=== PATIENT | male | born 1950 | race Caucasian/White ===

== ENCOUNTER 2018-08-20 10:42 | Inpatient (IN) ==
--- NOTE | 2018-08-20 09:38 | Discharge Summary ---
<Michael Burleson - Last Filed: 08/21/18 06:31> Orders not resulted at time of discharge: Pending orders 08/20/18 11:43 US anesthesia pain block [US] Routine Date of Encounter: 08/21/18 Time of Encounter: 06:31 - Hospital Course Hospital course: Mr. Gillis is a 68 year old male Patient discharged home same day following total shoulder replacement. - Time Spent with Patient Total time spent providing and/or coordinating discharge services: - Discharge Medications Home Medications: Atorvastatin [Lipitor] 10 mg PO HS 08/20/18 [History] Dm Hb/PE/Acetaminophen/Chlorph [Janelle-Perrin Plus Cld-Cough Cp] 2 cap PO BID PRN 08/20/18 [History] Metoprolol Succinate [Toprol Xl] 50 mg PO DAILY 08/20/18 [History] RX: Docusate Sodium [Colace] 100 mg PO BID 5 Days #10 capsule 08/20/18 [Rx] RX: OxyCODONE Immed Rel [Roxicodone 5 MG] 5 mg PO Q6HR PRN 7 Days #28 tablet 08/20/18 [Rx] RX: hydroCHLOROthiazide [Hydrochlorothiazide] 25 mg PO DAILY 08/20/18 [History] Allergies/Adverse Reactions: Allergy/AdvReac Type Severity Reaction Status Date / Time No Known Allergies Allergy Verified 08/20/18 11:27 Date of admission: 08/20/18 14:37 Primary care physician: Pavan Ramirez Consults: 08/20/18 15:26 Consult to Occupational Therapy [CONS] Routine Comment: post shoulder surgery Reason for Consult: post shoulder surgery Does patient have active BEDREST order?: No Is patient medically & hemodynamically stable?: Yes Consult to Physical Therapy [CONS] Routine Comment: post shoulder surgery Reason for Consult: post shoulder surgery Does patient have active BEDREST order?: No Is patient medically & hemodynamically stable?: Yes RT Post Op Consult [CONS] Routine Labs on day of discharge: Labs from last 24 hours 08/20/18 14:22 Hgb 13.9 D Hct 41.5 - Impressions ITS Impressions Shoulder X-Ray 08/20/18 01:00 IMPRESSION: Postsurgical changes of right shoulder arthroplasty. No acute process. D/ / Elizabeth Kennedy MD / Elizabeth Kennedy MD Interpreting Provider: Elizabeth Kennedy MD - Patient Status Disposition: Home Health Service Condition: Good Functional capacity at discharge: independent ambulation Overall status at discharge: patient is progressing back to baseline - Discharge Instructions Instructions: Joint Replacement Surgery (DC) Follow Up With: Pavan Ramirez DO [Primary Care Provider] - Additional Instructions: Discharge Instructions: Total Shoulder Please call [facility] ([phone]), your Primary Care Physician, or report to the Emergency Room if you have any of the following symptoms: Nausea, vomiting, fever greater that 101.5, swelling, chest pain, shortness of breath, increased pain/redness/drainage/odor for your incision site, numbness/tingling, or any other concerning symptoms. ACTIVITY: Always keep your arm in the sling. Do not raise your arm away from your body. Do not use your arm to help with getting in or out of bed. No weight bearing permitted. Only perform those exercises given to you by your therapist. Incentive Spirometer 10 times an hour. MEDICATIONS: Upon discharge resume your home medications. Take all the medications as prescribed. Take a stool softener if taking narcotic pain medications. Stool softeners are only effective if you drink enough fluids. Drink 6-8 glass of water or fluids a day, unless this is not allowed for another health problem. Despite using stool softeners, if you haven't had a bowel movement in 3 days, please switch to a gentle laxative. Gentle laxatives are sold over the counter. You should have a bowel movement within 24 hours, if not call the office. You will be discharged from the hospital with a prescription for pain medication. You are encouraged to decrease the use of narcotic pain medication as tolerated. Should you require a refill, please call the office. [facility] prescribes narcotic pain medication for only 4-6 weeks after surgery. If you require pain medication beyond this time period, you may be referred to your Primary Care Physician or to the Pain Clinic for further evaluation. Plan ahead for refills on pain medication as many narcotics either need to be picked up at the office or mailed. It is best to call 48-72 hours in advance of needing a prescription refill so you don't run out of medication. To help control the post-operative pain, you may take NSAIDs (Aleve,Advil, Motrin, Ibuprofen, Naprosyn) or Tylenol as prescribed on the bottle in addition to the pain medication. WOUND CARE: Leave the dressing on for 7-10 days. You may change the dressing if it becomes saturated greater than 50%. Do not get the dressing wet at anytime. Wash your hands with antibacterial soap, rinse and dry prior to any wound care. If you have uma the visiting nurse or rehab facility can remove the stapes 10-14 days after surgery and place steri-strips across the wound. Leave the steri-strips in place until they fall off on their own. You may let water from the shower run on top of the steri-strips. If you do not have a visiting nurse or rehab facility, you will need to return to the office at 10-14 days for the uma to be removed. If you have itching or redness around the dressing call the office. FOLLOW-UP: Please follow up with your surgeon in the orthopedic clinic, as beckie benito <Mirna Gregorio - Last Filed: 08/21/18 17:09> Orders not resulted at time of discharge: Pending orders 08/20/18 01:00 XR shoulder complete RT [XR] Routine Hemoglobin and Hematocrit [HEME] Routine Date of Encounter: 08/21/18 - Discharge Diagnosis (1) Rotator cuff arthropathy Priority: Primary Status: Chronic Qualifiers: Laterality: right Qualified Code(s): M12.811 - Other specific arthropathies, not elsewhere classified, right shoulder (2) Status post total shoulder arthroplasty Priority: Primary Status: Acute Qualifiers: Laterality: right Qualified Code(s): Z96.611 - Presence of right artificial shoulder joint (3) HTN (hypertension) Priority: Secondary Status: Chronic Qualifiers: Hypertension type: unspecified Qualified Code(s): I10 - Essential (primary) hypertension (4) HLD (hyperlipidemia) Priority: Secondary Status: Chronic Qualifiers: Hyperlipidemia type: unspecified Qualified Code(s): E78.5 - Hyperlipidemia, unspecified (5) Obesity Priority: Secondary Status: Chronic Qualifiers: Obesity type: unspecified obesity type Obesity classification: adult class 2 (BMI 35 - 39.9) Serious obesity comorbidity presence: unspecified whether serious comorbidity present Body mass index: BMI 35.0-35.9 Qualified Code(s): E66.9 - Obesity, unspecified; Z68.35 - Body mass index (BMI) 35.0-35.9, adult - Hospital Course Hospital course: Mr. Gillis is a 68 year old male - Time Spent with Patient Total time spent providing and/or coordinating discharge services: Primary care physician: Pavan Ramirez
--- NOTE | 2018-08-20 10:55 | History & Physical Report ---
Date of Encounter: 08/20/18 Time of Encounter: 10:55 24 Hour HP Update - Instructions Instructions: If the History and Physical is less than 30 days old and was completed prior to A.M. admission and or procedure and has NOT been updated on calendar day of procedure please complete this update prior to performing procedure. - Update Patient reports changes in Medical Condition: No Changes in examination, assessment, or condition: No Changes in Medication: No Preop tests/diagnostics Reviewed: Yes Surgery Remains Indicated: Yes Consent for Planned Operative Procedure(s) Verified: Yes - Pre-Operative Checklist Preoperative Checklist Indicated: No Prophylactic Antibiotic Ordered: Yes Is VTE Prophylaxis Indicated?: Yes
[2018-08-20] MEDS ORDERED: CeFAZolin Syr 2,000MG/20 ML 2,000 MG/20 ML SYRINGE IVPB ONE (11:03)
[2018-08-20] MEDS ORDERED: Ringers Solution, Lactated 1,000 ML IVC SCH ×2 (11:15→15:26)
[2018-08-20] MEDS ORDERED: Famotidine 20 MG/2 ML VIAL IVP ONE (11:42)
[2018-08-20] MEDS ORDERED: Acetaminophen IV 1,000 MG/100 ML INFUS..BTL IVPB ONE (11:43)
--- NOTE | 2018-08-20 11:46 | Anesthesia Evaluation PreOp ---
Date of Encounter: 08/20/18 Time of Encounter: 11:45 - Past History Planned Operation: Rt Total Shoulder Replacement Cardiac History: HTN, Hyperlipidemia Pulmonary History: Denies Any Significant HX MONKEY KEEPER History: Denies Any Significant HX Other Medical History: Denies Any Significant HX Anesthesia History: No Prior Anesthetic Complications Alcohol Use: none Drug use: none Medications and Allergies Atorvastatin [Lipitor] 10 mg PO HS 08/20/18 [History] Dm Hb/PE/Acetaminophen/Chlorph [Janelle-Hemlock Plus Cld-Cough Cp] 2 cap PO BID PRN 08/20/18 [History] Docusate Sodium [Colace] 100 mg PO BID 5 Days #10 capsule 08/20/18 [Rx] Metoprolol Succinate [Toprol Xl] 50 mg PO DAILY 08/20/18 [History] OxyCODONE Immed Rel [Roxicodone 5 MG] 5 mg PO Q6HR PRN 7 Days #28 tablet 08/20/18 [Rx] hydroCHLOROthiazide [Hydrochlorothiazide] 25 mg PO DAILY 08/20/18 [History] Allergy/AdvReac Type Severity Reaction Status Date / Time No Known Allergies Allergy Verified 08/20/18 11:27 - Meds/Allergy Pre-op Review Medications Reviewed: Yes Allergies Reviewed: Yes Beta Blockers on Current Med List: Yes (Metoprolol today 0830) Anesthesia Results - Labs Laboratory Tests 08/16/18 08/16/18 13:15 13:15 Hgb 15.5 Hct 46.6 Plt Count 190 Sodium 138 Potassium 4.1 BUN 16 Creatinine 1.21 - Imaging EKG: report reviewed (SR) Anesthesia Exam O2 Sat Height 1.73 m Height 1.73 m Height 1.73 m Weight 104.78 kg Weight 104.78 kg Weight 104.78 kg O2 Sat by Pulse Oximetry 94 Vital Signs Temp Pulse Resp BP Pulse Ox 97.9 F 68 18 178/96 94 08/20/18 11:10 08/20/18 11:10 08/20/18 11:10 08/20/18 11:10 08/20/18 11:10 Height: 5'8 Weight: 231 lbs NPO (# of Hours): MN Pain Scale: 0 - HEENT Pupil (Motor): Pupils equal, EOMI Mallampati: III Oral Opening: Less than or equal to 3 - MONKEY KEEPER LOC: Oriented MONKEY KEEPER Motor: Normal RUE, Normal LUE, Normal RLE, Normal LLE, Normal Face MONKEY KEEPER Sensory: Normal: RUE, LUE, RLE, LLE, Face - Cardiac Rhythm: Regular Murmur: None JVD: No Carotid Bruit: No - Pulmonary Breath Sounds: bilateral Clear Respiratory Effort: Symmetrical Anesthesia Assess/Plan ASA Score: 2 Level of consciousness: Cooperative Anesthetic Plan: General, Regional Nerve Block Regional Nerve Block Plan: Supraclavicular Autologous Blood: No Monitoring Plan: Standard Monitors Recovery Plan: PACU (Discussed GA, RA, agrees to proceed)
[2018-08-20] MEDS ORDERED: *HR* FentaNYL (PF) 100 MCG/2 ML VIAL ONE ×2 (11:48→13:07)
[2018-08-20] MEDS ORDERED: *HR* Propofol 200 MG/20 ML VIAL IVP ONE (11:48)
[2018-08-20] MEDS ORDERED: *HR* Midazolam HCl 2 MG/2 ML VIAL ONE (11:48)
[2018-08-20] MEDS ORDERED: Celecoxib 100 MG CAPSULE PO ONE (11:49)
[2018-08-20] MEDS ORDERED: Lidocaine -MPF 2% 2 ML VIAL ONE (11:49)
[2018-08-20] MEDS ORDERED: Bupivacaine/Clonidine Syringe 1 EACH SYRINGE ONE (12:08)
[2018-08-20] MEDS ORDERED: ROPIVACAINE HCL/PF 0.5% 30 ML VIAL ONE (12:08)
[2018-08-20] MEDS ORDERED: Ethanol\\Acetic Acid\\Na Ace\\Ben 1,000 ML IRRIG.SOLN IR ONE (12:23)
--- NOTE | 2018-08-20 12:36 | Anesthesia Procedures ---
Date of Encounter: 08/20/18 Time of Encounter: 12:34 Procedures: Anesthesia - Nerve Block Procedure Date: 08/20/18 Time: 12:34 Allergies/Adv Reactions: nkda Pre-op Diagnosis: Right shoulder arthritis Surgical Procedure: Right total shoulder Checklist: Correct Patient Identifier, Correct procedure, History checked Correct side: Right Blood Thinner: No Monitor Applied: BP, Pulse Oximetry Supplemental Oxygen via Nasal Cannula (L/min): 2 Sedation: Versed (mg): 2 Sedation: Fentanyl (mcg): 100 Indication: Post Op Analgesia Pre-op Neuro Deficits: No Block Type: Supraclavicular, Other (ICB, SCB) Catheter placed: No Sterile Technique: Yes Ultrasound used: Yes Anatomy identified: Yes Visual spread of Local: Yes Neuro Stimulation: No Blood on Needle Aspiration: No Smooth Injection of Local: Yes Pain with Injection of Local: No Prep: Chlorhexadine Needle: 22 x 50 mm Stimuplex Local: 0.25% Bupivicaine w/Clonidine 20 mcg/cc (7ml for SCB and 10ml for ICB), Ropivacaine (30ml 0.5% for supraclavicular) Volume (cc): 47 Number of Attempts: 1 Complications: None/effective block Vitals: Vital Signs/O2 Sat, Most Current Temp Pulse Resp BP Pulse Ox 97.9 F 65 17 160/83 97 08/20/18 11:10 08/20/18 12:31 08/20/18 12:31 08/20/18 12:31 08/20/18 12:31
[2018-08-20] MEDS ORDERED: *HR* OxyCODONE Immed Rel 5 MG TABLET PO PRN ×2 (12:43→15:26)
[2018-08-20] MEDS ORDERED: *HR* Promethazine 25 MG/ML VIAL IVP PRN (12:43)
[2018-08-20] MEDS ORDERED: *HR* HYDROmorphone (PF) 1 MG/ML SYRINGE IVP PRN (12:43)
[2018-08-20] MEDS ORDERED: *HR* Labetalol 20 MG/4 ML SYRINGE IVP PRN (12:43)
[2018-08-20] MEDS ORDERED: EPHEDrine 50 MG/ML VIAL ONE (13:06)
[2018-08-20] MEDS ORDERED: Ondansetron 4 MG/2 ML VIAL ONE (13:26)
[2018-08-20] MEDS ORDERED: Dexamethasone 4 MG/ML VIAL ONE (13:26)
--- NOTE | 2018-08-20 13:47 | Orthopedic Operative Note ---
Date of procedure: 08/20/18 Pre-op diagnosis: Right shoulder cuff tear arthropathy Post-op diagnosis: same Procedure: Procedure: Total Shoulder Replacment Reverse, right Estimated blood loss: 50 cc Hardware: Metal and polyethylene replacement: Arthrex 28, +4 , 35 mm screw glenoid baseplate, 4 locking 5.5 screw, 42+4 glenosphere, 15 apex humeral stem, poly insert 3 Exam Under anesthesia: Procedural Notes: Operative procedure: The patient was brought to the operating room and placed on the operating room table. After general anesthesia was administered the operative shoulder was examined. Findings were noted. The patient was placed in the modified beachchair position. All pressure points were padded appropriately. And the head was stabilized in the neutral position. The operative extremity was prepped and draped in the sterile surgical fashion. The patient received IV antibiotics prior to skin incision. A standard deltopectoral approach was made to the operative shoulder. Incision was made to the skin and subcutaneous tissue,hemo stasis was obtained with Bovie cautery. Using careful blunt dissection the cephalic vein was identified and mobilized medially. The deltopectoral interval was developed and the clavipectoral fascia was incised. The subscap was released off the lesser tuberosity and tagged with #2 FiberWire suture. The humerus was dislocated patient noted to have irreparable tear supraspinatus tendon, and the humeral cut was made along the anatomic neck. Anterior and posterior Bankart retractors were placed to expose the glenoid. The glenoid guide was seated and the centering hole was made. It was reamed with the appropriate reamer. The 28mm +4, 35 mm screw, baseplate was seated and secured with 4 locking 5.5 screw. The baseplate was irrigated and dried and the 42+4 Glenosphere was seated and secured with the Manuel taper. The Manuel taper was tested and found to be secure the humerus was redislocated and prepared with the diaphyseal reamers, followed by a broaching process up to the appropriate size 15 apex in the patient's anatomic version. The metaphyseal reamer was then utilized. Trial reduction found the shoulder to be relocatable. Trial components were removed and 15 apex stem was impacted in place in the patient's anatomic version. Trial reduction found the shoulder to be relocatable and stable with the appropriate 3 Asiya Trial component was removed and the real implant was seated and secured the shoulder was reduced. The shoulder had excellent motion and excellent stability and no evidence of dislocation. The deep tissue was irrigated with pulse irrigation. The PA close the shoulder. The deltopectoral interval was closed with a running #1 PDS suture, subcutaneous tissue was irrigated and closed with 0 PDS suture, the skin was closed with Dermabond. The patient was placed in a sterile dressing, abduction brace and extubated. The patient was then transferred to the recovery room in stable condition. Anesthesia: JESSICA Surgeon: Michael Burleson Was there an respiratory equipment assistant present: Yes Corn Lab Technician: Caro Oliveira Estimated blood loss (cc): 50 Condition: stable Disposition: PACU
--- NOTE | 2018-08-20 14:26 | Anesthesia Evaluation Post Op ---
Date of Encounter: 08/20/18 Time of Encounter: 14:25 - Vital Signs Vital Signs: Vital Signs/O2 Sat/Glucose, Most Current Temp Pulse Resp BP Pulse Ox 08/20/18 14:20 70 18 151/79 93 08/20/18 14:10 69 20 142/77 94 08/20/18 14:00 97.0 F L 70 16 156/80 97 08/20/18 12:31 65 17 160/83 97 08/20/18 12:17 72 16 193/98 97 08/20/18 11:10 97.9 F 68 18 178/96 94 - Lungs Lungs: Clear Ascult./Percussion - Airway Airway: Non-obstructed - Cardiovascular Regular Rate - Mental Status Mental Status: Alert & Oriented, Answers Appropriately - Pain Pain Scale: 0 - Nausea Vomiting Nausea Vomiting: Not Present - Hydration Hydration: Ice chips - Discharge PostOp Status: Transfer Patient to floor
--- NOTE | 2018-08-20 14:28 | Physician Discharge Referral ---
Home Health/Hosp Referral Info Transfer to: Home Health Attending Provider: Dr. Michael Burleson - Diagnosis (1) Rotator cuff arthropathy Priority: Primary Status: Chronic (2) Status post total shoulder arthroplasty Priority: Primary Status: Acute (3) HTN (hypertension) Priority: Secondary Status: Chronic (4) HLD (hyperlipidemia) Priority: Secondary Status: Chronic (5) Obesity Priority: Secondary Status: Chronic - Respiratory Orders Smoking Cessation: Smoking cessation has been advised. For more information, call the [place] Tobacco Quit Line at 6-887-MRPD-NOW. - Dressing/Wound Care Site: right shoulder Type of Dressing/Treatments w/Frequency: Opsite placed. Keep dressing intact until first follow up appointment. If > 50% saturated, notify office, remove dressing and place appropriate dressing back in place. Dressing is water resistant, not water-proof. OK to shower, but do not get dressing wet. - Diet/Nutrition Diet/Nutrition Orders: Regular - Activity Activity Orders: Up ad helena, Ambulate, Chair Activity: List: PT/OT. NWB to affected upper extremity. Follow Shoulder Precautions x 6 weeks. Stay in brace during activity and at night. Remove brace during exercises. ICE and elevate extremity frequently throughout the day. - Services Needed Following services are medically necessary services: Nursing, Home Health Aide, Physical Therapy, Occupational Therapy - Transfer Medications Home Medications: Atorvastatin [Lipitor] 10 mg PO HS 08/20/18 [History] Dm Hb/PE/Acetaminophen/Chlorph [Janelle-Gamaliel Plus Cld-Cough Cp] 2 cap PO BID PRN 08/20/18 [History] Docusate Sodium [Colace] 100 mg PO BID 5 Days #10 capsule 08/20/18 [Rx] Metoprolol Succinate [Toprol Xl] 50 mg PO DAILY 08/20/18 [History] OxyCODONE Immed Rel [Roxicodone 5 MG] 5 mg PO Q6HR PRN 7 Days #28 tablet 08/20/18 [Rx] hydroCHLOROthiazide [Hydrochlorothiazide] 25 mg PO DAILY 08/20/18 [History] Allergies/Adverse Reactions: Allergy/AdvReac Type Severity Reaction Status Date / Time No Known Allergies Allergy Verified 08/20/18 11:27 Certification: Further, I certify that my clinical findings support that this patient is homebound (i.e. absences from home require considerable and taxing effort and are for medical reasons or cheondoism services or infrequently or short duration when for other reasons) because: Homebound Reason: Post-surgery restriction and or conditions limit ability to leave home Attestation: My signature below is to certify that this patient is under my care and that I, or nurse practitioner, or a physician cleaner assistant working with me, has a [id number] encounter with this patient.
[2018-08-20 14:40] LABS: Hematocrit 41.5 % (37.5-50.1)
[2018-08-20 14:43] LABS: Hemoglobin 13.9 g/dL (12.9-16.9)
[2018-08-20] MEDS ORDERED: Naloxone 0.4 MG/ML INJ IVP PRN (15:26)
[2018-08-20] MEDS ORDERED: Ondansetron 4 MG/2 ML VIAL IVP PRN (15:26)
[2018-08-20] MEDS ORDERED: Sennosides 8.6 MG TABLET PO PRN (15:26)
[2018-08-20] MEDS ORDERED: traMADol 50 MG TABLET PO PRN (15:26)
[2018-08-20] MEDS ORDERED: MOM Conc 10 ML UD.LIQ PO PRN (15:26)
[2018-08-20] MEDS ORDERED: *HR* OxyCODONE/APAP 5/325 TABLET PO PRN (15:26)
[2018-08-20] MEDS ORDERED: Temazepam 15 MG CAPSULE PO PRN (15:26)
[2018-08-20 15:52] VITALS: BP 133/78
[2018-08-20] MEDS ORDERED: *HR* Enoxaparin 30 MG/0.3 ML SYRINGE SQ SCH ×2 (18:00)
[2018-08-21] MEDS ORDERED: Metoprolol XL (24 HR) Succ 50 MG TAB.ER.24H PO SCH (09:00)
[2018-08-21] MEDS ORDERED: hydroCHLOROthiazide 25 MG TABLET PO SCH (09:00)
== END 2018-08-20 18:10 | disposition home health service (06) | DRG 483 ==
LOC: SAMDAY 10:42 → 3NENU 14:37
PROVIDERS: ADMIT Orthopaedic Surgery; ATTEND Orthopaedic Surgery